=== PATIENT | male | born 2005 | race Caucasian/White ===

== ENCOUNTER 2025-01-20 20:54 | Emergency (ER) | payer OTHER, SELFPAY ==
[2025-01-20] VITALS (8 sets, daily range): BP systolic 132–151; BP diastolic 75–87; PULSE 68–86; RESP 16; TEMP 36.6; O2SAT 97–100; BMI 28.0
--- NOTE | 2025-01-20 22:10 | ED.GENADULT ---
HPI - General Adult General Chief complaint: Dental/Oral Stated complaint: spitting up blood, not coughing up. Time Seen by Provider: 01/20/25 22:00 Source: patient Mode of arrival: Ambulatory History of Present Illness HPI narrative: Patient is a healthy 19-year-old male who presents today with spitting up blood. He denies he has any sort of cough he has not having hemoptysis. He has no hematemesis he does not have any nausea or vomiting. He reports that it feels like he has a leukemia in the back of his throat knees coughing it up and it is bloody. He has not had a bloody nose. He does not drink excess alcohol. He does admit to having 1 red mixed drink last night. 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 No significant abdominal pain has not had any bowel movements. Not having any sort of shortness of breath. No recent travel no fever no chills Related Data Allergies Allergy/AdvReac Type Severity Reaction Status Date / Time ibuprofen Allergy Swelling Verified 01/20/25 23:26 of Lip/Tongue/Throat Penicillins Allergy Verified 01/20/25 23:26 Patient History Social History Smoking Status: Never smoker Smoking Status: Never smoker Exam Initial Vital Signs Initial Vital Signs: Vital Signs Pulse Rate 86 01/20/25 21:08 Pulse Oximetry 100 01/20/25 21:08 GENERAL: Alert pleasant well-appearing 19-year-old male and in [no acute] distress. HEENT: Head atraumatic,EOMI, pupils reactive, face symmetric, [moist] mucous membranes. Nose is clear no evidence of epistaxis PHARYNX: NO EVIDENCE OF BLOOD IN THROAT NO TONSILLAR SWELLING YOU DEVIATION OR OTHER CARDIOVASCULAR: Regular rate and rhythm without murmurs, rubs or gallops. RESPIRATORY: Breath sounds equal bilaterally, no wheezes rales or rhonchi. ABDOMEN: Soft, nontender. Normoactive bowel sounds all 4 quadrants. No guarding or rebound. EXTREMITIES: Normal range of motion, no clubbing or edema. Neurovascularly intact NEUROLOGICAL: Alert and oriented x4.Normal gait and speech. Cranial nerves II through XII grossly intact. SKIN: Warm, dry, no laceration, no petechiae, no rashes or lesions. Course Orders Ordered: ED Orders 01/20/25 21:55 CBC Auto Diff [Complete Blood Count AUTO DIFF] Stat CMP [Comprehensive Metabolic Panel] Stat D Dimer Stat Lactate (Lactic Acid) Stat PT [Prothrombin Time INR] Stat PTT Partial Thromboplastin Clint Stat 01/20/25 22:11 Chest [XR chest 1V] Stat Vital Signs Vital signs: Vital Signs - 8 hr 01/20/25 21:08 01/20/25 21:12 01/20/25 21:30 Temperature 97.8 F Pulse Rate 86 84 83 Respiratory Rate 16 Blood Pressure 151/86 H Pulse Oximetry 100 97 98 Oxygen Delivery Method Room Air 01/20/25 21:42 01/20/25 21:42 01/20/25 22:00 Temperature Pulse Rate 77 68 Respiratory Rate Blood Pressure 145/75 H Pulse Oximetry 97 99 Oxygen Delivery Method 01/20/25 22:01 01/20/25 22:01 01/20/25 22:30 Temperature Pulse Rate 71 Respiratory Rate Blood Pressure 137/87 132/76 Pulse Oximetry 99 Oxygen Delivery Method 01/20/25 22:30 01/20/25 23:00 01/20/25 23:00 Temperature Pulse Rate 69 68 Respiratory Rate Blood Pressure 135/79 Pulse Oximetry 98 98 Oxygen Delivery Method Medical Decision Making Lab Data 01/20/25 21:55 01/20/25 21:55 Labs: Lab Results 01/20/25 Range/Units 21:55 WBC 9.4 (4.5-11.0) X10^3/uL RBC 4.69 (4.5-5.9) X10^6/uL Hgb 14.2 (13.5-17.5) g/dL Hct 41.5 (41-53) % MCV 88.3 (80-100) fL MCH 30.3 (26-34) PG MCHC 34.3 (30-36) % RDW 12.9 (11.6-14.8) % Plt Count 344 (150-400) X10^3/uL Neut % (Auto) 56.3 (50-75) % Lymph % (Auto) 32.0 (25-40) % [place] % (Auto) 7.8 (3-14) % Eos % (Auto) 3.5 (2-4) % Baso % (Auto) 0.4 (0-2) % Neut # (Auto) 5300 (4094-5808) /uL Lymph # (Auto) 3000 (7912-0056) /uL [place] # (Auto) 700 (0-900) /uL Eos # (Auto) 300 (0-450) /uL Baso # (Auto) 0 (0-100) /uL PT 10.8 (9.4-12.5) SECONDS INR 1.0 (0.9-1.3) APTT 37 H (25.1-36.5) SECONDS D-Dimer < 215 (<500) ng/ml Sodium 139 (137-145) mmol/L Potassium 4.2 (3.4-5.1) mmol/L Chloride 100 (98-107) mmol/L Carbon Dioxide 28 (22-32) mmol/L BUN 19 (9-20) mg/dL Creatinine 1.06 (0.66-1.25) mg/dL Estimated GFR > 60 (>60) mL/min BUN/Creatinine Ratio 17.9 (6-22) Glucose 102 H (70-100) mg/dL Lactate 1.0 (0.7-2.1) mmol/L Calcium 10.3 H (8.4-10.2) mg/dL Total Bilirubin 0.4 (0.2-1.3) mg/dL AST 49 (17-59) IU/L ALT 59 H (<50) IU/L Alkaline Phosphatase 74 (38-126) U/L Total Protein 8.5 H (6.3-8.2) g/dL Albumin 5.1 H (3.5-5.0) g/dL Globulin 3.4 (1.7-4.1) g/dL Albumin/Globulin Ratio 1.5 (1.0-2.8) Imaging Data Chest x-ray: Radiologist's Impression: PROCEDURE: XR CHEST 1V INDICATIONS: Hemoptysis TECHNIQUE: One view of the chest was acquired. COMPARISON: None. FINDINGS: Surgical changes and devices: None. Lungs and pleura: Lungs are clear. No pleural effusions or pneumothorax. Mediastinum: Mediastinal contours appear normal. Heart size is normal. Bones and chest wall: No suspicious bony lesions. Overlying soft tissues appear unremarkable. IMPRESSION: No acute cardiopulmonary abnormality is seen. Approved by: Dimple Reich M.D.,Ph.D. on 01/20/2025 at 22:41 MDM Narrative Medical decision making narrative: Patient 19-year-old male presenting today with spitting up blood. He was not spit up any here in the emergency department. He has not tachycardic or hypoxic. It does not really sound like he was vomiting blood it does not sound like he is coughing up blood no evidence of an epistaxis. He has not on antiplatelet or anticoagulation medication. Blood work has been reviewed overall reassuring Hemoglobin is 14.2 hematocrit 41.5 D-dimer less than 215 Electrolytes within normal limits BUN 19 creatinine 1.0 Lactate 1.0 INR 1.0 PT 10.8 PTT 37 Chest x-ray negative At this time hard to say what he is spitting up. He was not anemic no evidence of pneumonia on his x-ray low concern for pulmonary embolism. Does not sound like he was having vomiting low risk for any sort of variceal bleed abdomen is soft nontender. BUN creatinine ratio within normal limits low suspicion for upper GI bleed not complaining of rectal bleeding. At this time supportive care return if worsening Discharge Plan Departure Patient Disposition: Home Clinical Impression: Hemoptysis Instructions: DI for Hemoptysis Activity Restrictions/Additional Instructions: *You have been diagnosed with spitting up blood *What to do: At this time unclear you are spitting up blood. Your levels and blood work x-ray are all overall reassuring *Continue to take medications as directed Avoid ibuprofen and aspirin for now *Follow up with your primary care provider in 2-3 days or call [phone] *Return to ER if you should have spitting up or coughing up handful blood at a time dizziness lightheadedness or any new, worsening or concerning symptoms Stand Alone Forms: Patient Portal/API/Survey
[2025-01-20 22:24] LABS: Add Manual Diff / Slide Review NO; Basophils Absolute Auto 0 /uL (0-100); Basophils Percent Auto 0.4 % (0-2); Eosinophils Absolute Auto 300 /uL (0-450); Eosinophils Percent Auto 3.5 % (2-4); Hematocrit 41.5 % (41-53); Hemoglobin 14.2 g/dL (13.5-17.5); Lymphocytes Absolute Auto 3000 /uL (1100-4500); Mean Corpuscular HGB Conc 34.3 % (30-36); Mean Corpuscular Hemoglobin 30.3 PG (26-34); Mean Corpuscular Volume 88.3 fL (80-100); Monocytes Absolute Auto 700 /uL (0-900); Monocytes Percent Auto 7.8 % (3-14); Neutrophils Absolute Auto 5300 /uL (1500-7000); Neutrophils Percent Auto 56.3 % (50-75); Platelet Count 344 X10^3/uL (150-400); Red Blood Cell Count 4.69 X10^6/uL (4.5-5.9); Red Cell Distribution Width 12.9 % (11.6-14.8); White Blood Cell Count 9.4 X10^3/uL (4.5-11.0)
[2025-01-20 22:30] LABS: Prothrombin Time 10.8 SECONDS (9.4-12.5)
[2025-01-20 22:31] LABS: Alanine Aminotransferase 59 IU/L (<50); Albumin 5.1 g/dL (3.5-5.0); Albumin Globulin Ratio 1.5 (1.0-2.8); Alkaline Phosphatase 74 U/L (38-126); Aspartate Aminotransferase 49 IU/L (17-59); BUN Creatinine Ratio 17.9 (6-22); Bilirubin Total 0.4 mg/dL (0.2-1.3); Blood Urea Nitrogen 19 mg/dL (9-20); Calcium 10.3 mg/dL (8.4-10.2); Carbon Dioxide 28 mmol/L (22-32); Chloride 100 mmol/L (98-107); Estimated Glomerular Filt Rate > 60 mL/min (>60); Globulin 3.4 g/dL (1.7-4.1); Glucose 102 mg/dL (70-100); HEMOLYSIS < 15 (0-50); Potassium 4.2 mmol/L (3.4-5.1); Sodium 139 mmol/L (137-145); Total Protein 8.5 g/dL (6.3-8.2)
[2025-01-20 22:32] LABS: PTT Partial Thromboplastin Tim 37 SECONDS (25.1-36.5)
[2025-01-20 22:33] LABS: D Dimer < 215 ng/ml (<500)
== END 2025-01-20 23:37 | disposition home or self-care (01) ==
PROVIDERS: Emergency Provider Emergency Medicine
DX: R04.2 Hemoptysis (principal); R42 Dizziness and giddiness
CPT/HCPCS: 36415; 71045; 80053; 83605; 85025; 85379; 85610; 85730; 99283; 99284